=== PATIENT | female | born 1960 | race Caucasian/White ===

== ENCOUNTER 2019-11-27 10:40 | Outpatient (CLI) | payer BC, SELFPAY ==
--- NOTE | ~2019-11-27 | MM_ITS ---
EXAMINATION: MM screening rupert BI w leonila HISTORY: Screening mammogram TECHNIQUE: Craniocaudal and mediolateral oblique 3-D tomosynthesis images were obtained and synthetic 2-D images were generated. CAD analysis was submitted and interpreted. COMPARISON: No prior mammogram is available for comparison at this institution. BREAST PARENCHYMAL COMPOSITION: There are scattered areas of fibroglandular density. FINDINGS: There is no evidence of suspicious mass, calcification, or architectural distortion to sugg est malignancy in either breast. There has been no suspicious interval change. IMPRESSION: 1. No mammographic evidence of malignancy 2. Recommend routine screening mammography in one year BI-RADS Category 1: Negative Reviewed, dictated and finalized at location A.
== END 2019-11-27 10:41 | disposition home or self-care (01) ==
PROVIDERS: PCP Family Medicine; Visit Provider Family Medicine
DX: Z12.31 Encounter for screening mammogram for malignant neoplasm of breast (principal)
CPT/HCPCS: 77063; 77067

== ENCOUNTER 2020-06-20 09:00 | Outpatient (RCR) | payer BC, SELFPAY ==
--- NOTE | 2020-05-23 11:53 | PTOPEVAL ---
Thank you for referring Shahla Bacon to [facility] The patient is scheduled to be seen for therapy? 2 x/week for 5 weeks. Please review, sign, date and return this plan of care TOMMY. I agree with and certify that the following plan of care is medically necessary. Referring Physician Date Attending Provider: Isaak Spivey MD Referring Provider: Isaak Spivey MD *PT Outpatient Evaluation Start: 05/23/20 10:26 Freq: Status: Active Protocol: Document 05/23/20 10:28 OLAMIDE (Rec: 05/23/20 10:56 OLAMIDE [id number]) Therapy Assessment Status Assessment Status Assessment Status Evaluation Outpatient Past Medical History Past Medical History Source of Past Medical History Patient,Recalled from Previous Visit, Confirmed with Patient /Family Neurological History Hx Neurological Disorders No Significant History Cardiovascular History Hx Cardiac Disorders No Significant History Respiratory History Hx Respiratory Disorders No Significant History Gastrointestinal History Hx Gastrointestinal Disorders No Significant History Genitourinary History Hx Genitourinary Disorders No Significant History Musculoskeletal History Hx Musculoskeletal Disorders No Significant History Hematological History Hx Hematological Disorders No Significant History Endocrine History Hx Hypothyroidism Yes HEENT History Hx Other HEENT Disorders Yes: hearing loss Psychosocial History Hx Other Psychiatric Disorders Yes: panic attacks Evaluation Information Problem Diagnosis RTC tendonitis Onset 1 yr Subjective Information She was doing more use of Query Text:As Reported By Patient/ computer and use of mouse at Family work 1yrs ago with increased bicep pain. The symptoms improved with rest last year. But returned with normal work hours. She retired in November, but the symptoms did not improve. She is concerned something is wrong. She has increased pain with extreme shoulder IR with add motion. Sudden jerking of the arm is painful. Trouble and pain with brushing teeth and opening jars. Difficulty pulling the covers up when sleeping. At rest she normally has no pain. She is performing cardio of walkin
--- NOTE | 2020-06-20 11:15 | PTOPEVAL ---
Thank you for referring Shahla Bacon to [facility]. Pt has achieved maximal potential with skilled therapy services at this time. ?No additional skilled therapy services required at this time. Please review, sign, date and return this plan of care TOMMY. I agree with and certify that the following plan of care is medically necessary. Referring Physician Date Attending Provider: Isaak Spivey MD Referring Provider: Isaak Spivey MD *PT Outpatient Evaluation Start: 05/23/20 10:26 Freq: Status: Active Protocol: Document 06/20/20 09:05 OLAMIDE (Rec: 06/20/20 09:54 [facility] [id number]) Therapy Assessment Status Assessment Status Assessment Status Re-evaluation/Discharge Note Outpatient Past Medical History Past Medical History Source of Past Medical History Patient,Recalled from Previous Visit, Confirmed with Patient /Family Neurological History Hx Neurological Disorders No Significant History Cardiovascular History Hx Cardiac Disorders No Significant History Respiratory History Hx Respiratory Disorders No Significant History Gastrointestinal History Hx Gastrointestinal Disorders No Significant History Genitourinary History Hx Genitourinary Disorders No Significant History Musculoskeletal History Hx Musculoskeletal Disorders No Significant History Hematological History Hx Hematological Disorders No Significant History Endocrine History Hx Hypothyroidism Yes HEENT History Hx Other HEENT Disorders Yes: hearing loss Psychosocial History Hx Other Psychiatric Disorders Yes: panic attacks Evaluation Information Problem Diagnosis RTC tendonitis Onset 1 yr Subjective Information She feels more confident she Query Text:As Reported By Patient/ is better knowledged on proper Family movement of the UE and she is able to move without hurting herself. She is able to brush teeth and open jars with improved pain and movement. She cont to have UE stiffness at home, but less pain of the arm. The stiffness and soreness improves after she is up and moving in the moving. She denied pain with reaching behind her back for ADL's. 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 Pain Assessment Timing of Pain Assessment Timing of Pain Assessment Re-assessment Pain Scale Pain Scale Used Nu
== END 2020-06-21 08:58 | disposition home or self-care (01) ==
LOC: ANHPT 09:00
PROVIDERS: PCP Family Medicine; Referring Provider Orthopaedic Surgery; Visit Provider Orthopaedic Surgery
DX: M75.81 Other shoulder lesions, right shoulder (principal)
CPT/HCPCS: 97035; 97110; 97140; 97161

== ENCOUNTER 2021-01-07 17:40 | Outpatient (CLI) | payer OTHER, SELFPAY ==
--- NOTE | ~2021-01-07 | MM_ITS ---
EXAMINATION: MM screening rueprt BI w leonila HISTORY: Screening TECHNIQUE: Craniocaudal and mediolateral oblique 3-D tomosynthesis images were obtained and synthetic 2-D images were generated. CAD analysis was submitted and interpreted. COMPARISON: Comparison to multiple prior studies sequentially, with oldest reviewed study dated 07/2014. BREAST PARENCHYMAL COMPOSITION: There are scattered areas of fibroglandular density. FINDINGS: There is no evidence of suspicious mass, calcification, or architectural distortion to sugg est malignancy in either breast. There has been no suspicious interval change. IMPRESSION: 1. No mammographic evidence of malignancy. 2. Recommend routine screening mammography in one year. BI-RADS Category 1: Negative Reviewed, dictated and finalized at location A.
== END 2021-01-07 17:41 | disposition home or self-care (01) ==
LOC: ANHIMG 17:43
PROVIDERS: PCP Family Medicine; Visit Provider Family Medicine
DX: Z12.31 Encounter for screening mammogram for malignant neoplasm of breast (principal)
CPT/HCPCS: 77063; 77067

== ENCOUNTER 2022-02-24 16:49 | Outpatient (CLI) | payer OTHER, SELFPAY ==
--- NOTE | ~2022-02-24 | MM_ITS ---
EXAMINATION: MM screening rupert BI w leonila HISTORY: Screening mammogram, family history of breast cancer in her mother. TECHNIQUE: Craniocaudal and mediolateral oblique 3-D tomosynthesis images were obtained and synthetic 2-D images were generated. CAD analysis was submitted and interpreted. COMPARISON: 01/07/2021, 11/27/2019, 11/21/2018 BREAST PARENCHYMAL COMPOSITION: There are scattered areas of fibroglandular density. FINDINGS: There is no suspicious mass, calcification, or architectural distortion to suggest malignan cy in either breast. There has been no suspicious interval change. IMPRESSION: 1. No mammographic evidence of malignancy. 2. Recommend routine screening mammography in one year. BI-RADS Category 1: Negative Reviewed, dictated and finalized at location A.
== END 2022-02-24 16:50 | disposition home or self-care (01) ==
PROVIDERS: PCP Family Medicine; Visit Provider Family Medicine
DX: Z12.31 Encounter for screening mammogram for malignant neoplasm of breast (principal)
CPT/HCPCS: 77063; 77067

== ENCOUNTER 2022-03-17 11:32 | Outpatient (CLI) | payer OTHER, SELFPAY ==
--- NOTE | ~2022-03-17 | XR_ITS ---
EXAM: XR lumbar spine 2-3V DATE: 03/17/2022 11:54 HISTORY: M54.50 - Low back pain, unspecified NON TRAUMA RELATED . COMPARISON: None available. FINDINGS: 5 nonrib-bearing lumbar-type vertebral bodies. Pedicles intact. Normal vertebral body alig nment. Vertebral body heights preserved. Mild disc space narrowing at L4-5 and L5-S1. Multilevel mild facet sclerosis and hypertrophy. No fracture or dislocation. IMPRESSION: Mild lower lumbar degenerative disc disease and facet arthropathy. Reviewed, dictated and finalized at location K.
== END 2022-03-17 11:33 | disposition home or self-care (01) ==
LOC: ANHIMG 11:34
PROVIDERS: PCP Family Medicine; Visit Provider Nurse Practitioner Family
DX: M51.36 Other intervertebral disc degeneration, lumbar region (principal)
CPT/HCPCS: 72100

== ENCOUNTER 2022-05-26 14:00 | Outpatient (RCR) | payer OTHER, SELFPAY ==
--- NOTE | 2022-04-15 16:11 | PTOPEVAL1 ---
Assessment and note entered by Danni Buchanan, PT Evaluation Information Assessment Status Evaluation Diagnosis low back pain Onset January 2022 Subjective Information Shahla reports: in January, started doing more overhead lifts with weight for strengthening; can do all home activities but pain worse; for fitness -- used to take 3-4 mile walks, now can barely do 1 mile; standing about 5-10 minutes; have exercise bike at home- do ok with it; have been trying to work on her posture--knows it is bad; Reported Pain Level Pain Score Self Report Additional Pain Score Comments pain range of 0-8/10; sore over low back R >L; pain increased with awaken in AM, walking, increase activity level and standing;pain decreased with; sit, rest, bend forward to stretch back, heat pad, over the counter med PRN; is sleeping OK; generally sleep on side in flexed position- educated on use of pillow between knees and more extended trunk; Oswestry self assessment functional score of 46% limitation; Assessment PT Clinical Summary Shahla has the diagnosis of low back pain. She reports increase in pain without trauma or injury. She has decreased walking, standing and activity tolerance due to pain. With rest, her pain is 0/ 10. Self assessment Oswestry score is 46% limitation in activity. With the evaluation, she has poor standing posture of thoracic and lumbar spine, with scoliosis and rotation of her spine; weakness over trunk and scapular areas and tightness over R anterior hip/ quad. Standing trunk flexion decreases her pain. Skilled PT services are indicted for modalities to decrease pain, therapeutic exercises to stretch and strengthen thoracic-lumbar spine with education for posture and HEP. Plan of Care Interventions Electrical Stimulation,Hot Pack/Cold Pack,Manual Therapy,Neuro Re-education,Patient/Caregiver Education,Therapeutic Activities,Therapeutic Exercise PT Services Indicated Yes Treatment Frequency and 1x/wk for 5 weeks Duration These treatments will address the objective and functional deficits as defined above. The patient will be advanced safely and appropriately in order for the patient to progress towards his/her prior level of function. Additional exercises will be introduced and as well as a comprehensive home exercise program upon discha
--- NOTE | 2022-05-26 14:49 | PTOPDC ---
Assessment and note entered by Danni Buchanan, PT Evaluation Information Assessment Status Discharge Diagnosis low back pain Onset January 2022 Subjective Information Shahla reports: she is more aware of her back position and stretching her back; it is a little better; have been doing her exercises at home; walking time of about 1 mile, then have to sit down and take a break; pain range of 0-4/10, at mid sacrum; decrease with heat and sitting down to rest; increase pain with standing still on hard surface 10-15 min; Reported Pain Level Pain Score Self Report pain range 0-4/10 Additional Pain Score Comments discussed balance of activity/rest; pain management and awareness of activity level and when to stop activity and plan for activities; discussed home exercises, bicycle riding- stationary at home; walking distance of about 1 mile, then stop; not to over do it with activity; sitting without legs crossed or rounding her back; pt voiced understanding of managing her pain not a cure; Assessment PT Clinical Summary Shahla has received 5 PT sessions for low back pain. Compared to the initial evaluation: pain rating at the worst decreased from 8 to 4/10; reported walking tolerance is the same and standing tolerance increased by 5 minutes; increased flexibility of R anterior hip/quad muscles; Oswestry self assessment score improved from 46% to 36% limitation in activity level; increase trunk and hip strength; indep with HEP and increased awareness of posture and positioning of her trunk/spine. The goals were achieved. Discharge PT services. She is to continue with her home exericses and posture awareness. Plan of Care PT Services Indicated No
== END 2022-05-26 14:58 | disposition home or self-care (01) ==
LOC: ANHPT 14:00
PROVIDERS: PCP Family Medicine; Visit Provider Nurse Practitioner Family
DX: M54.50 Low back pain, unspecified (principal)
CPT/HCPCS: 97014; 97110; 97112; 97140; 97161; 97530; G0283

== ENCOUNTER 2022-06-26 10:01 | Emergency (ER) | payer OTHER, SELFPAY ==
[2022-06-26 10:14] VITALS: BP 138/83; PULSE 95; RESP 16; TEMP 37.3; O2SAT 100
[2022-06-26 10:15] VITALS: BP 138/83; PULSE 95; RESP 16; TEMP 37.3; O2SAT 100
--- NOTE | 2022-06-26 10:23 | ED.EAR ---
HPI - Ear Problem General Chief complaint: Ear Stated complaint: R EAR CLOGGED Time Seen by Provider: 06/26/22 10:17 Source: patient Mode of arrival: ambulatory Limitations: no limitations History of Present Illness HPI Narrative: Patient presents today complaining of 4 day history of clogging to the right ear with popping. Denies pain. She has been using Debrox drops without relief. Denies any additional symptoms. Related Data Allergies Allergy/AdvReac Type Severity Reaction Status Date / Time codeine AdvReac Unknown goofy Verified 03/17/22 10:57 Review of Systems Review of Systems: CONSTITUTIONAL: Denies body aches, fever, chills, or sweats. EYES: Denies visual changes, redness, or discharge. ENT: Denies rhinorrhea, congestion, sore throat, or otalgia.+ right ear clogging CARDIOVASCULAR: Denies chest pain, palpitations, or edema. RESPIRATORY: Denies cough or dyspnea. GASTROINTESTINAL: Denies abdominal pain, nausea, vomiting, or diarrhea. GENITOURINARY: Denies dysuria or hematuria. SKIN: Denies rash, itching, or wounds. MUSCULOSKELETAL: Denies back pain, joint pain, or myalgia. NEUROLOGIC: Denies headache, numbness, tingling, or weakness. PSYCH: Denies depression or anxiety. [facility] Past Medical History Medical History Acquired hypothyroidism VIKTORIA (generalized anxiety disorder) Hearing loss Nonintractable menstrual migraine Panic attacks Right shoulder pain Seasonal allergies Surgical History Surgical History History of appendectomy History of cholecystectomy Family History Family History Father Family history of malignant neoplasm Patient's father is Family history of malignant neoplasm of testis Mother Hypertension Other Arthritis Social History Social History Smoking status: Never smoker Second hand tobacco smoke exposure: No Alcohol intake: current Drinks per week: 1 Substance use: never Substance use type: does not use Living arrangements: with family Occupation/Education: occupation Gender identity (if verbalized by the patient): Female Comments At time of signature, I have reviewed and agree with nursing past medical, surgical, social and family history unless otherwise noted. Please see nursing chart for further information. There is no relevant family history pertinent to the presenting complaint Exam Narrative: GENERAL: Well-appearing, well-nourished, and in no acute distress. HEAD: Normocephalic, atraumatic. EYES: EOMI. No redness or drainage. Conjunctivae normal. ENT: Mucous membranes pink and moist. Nares clear. No rhinorrhea. Left TM normal. Right TM occluded with deep cerumen impaction. NECK: Normal AROM. CHEST: No respiratory distress. EXTREMITIES: Normal range of motion. No edema. SKIN: Warm, dry, no rash. Capillary refill normal. Normal skin turgor. NEURO: No focal deficits. Alert and oriented x3. Gait steady. PSYCH: Normal affect. No signs of depression or anxiety. Course Course Level of Care: Express Care Visit Vital Signs Vital signs: Vital Signs Temperature 99.2 F 06/26/22 10:14 Pulse Rate 95 06/26/22 10:14 Respiratory Rate 16 06/26/22 10:14 Blood Pressure 138/83 06/26/22 10:14 Pulse Oximetry 100 06/26/22 10:14 Temperature 99.2 F 06/26/22 10:15 Pulse Rate 95 06/26/22 10:15 Respiratory Rate 16 06/26/22 10:15 Blood Pressure 138/83 06/26/22 10:15 Pulse Oximetry 100 06/26/22 10:15 Reviewed. Pt has been instructed to follow up with her PCP regarding her elevated blood pressure today. Procedures Ear Wax Removal Right Ear: Ear Wax Removal Date: 06/26/22 Ear Wax Removal Time: 10:25 Cerumenolytic Used: other (none)
== END 2022-06-26 10:38 | disposition home or self-care (01) ==
PROVIDERS: Emergency Provider Nurse Practitioner; PCP Family Medicine
DX: H61.21 Impacted cerumen, right ear (principal); E03.9 Hypothyroidism, unspecified
CPT/HCPCS: 69209; 99212; G0463

== ENCOUNTER 2023-05-06 11:13 | Outpatient (CLI) | payer OTHER, SELFPAY ==
--- NOTE | ~2023-05-06 | US_ITS ---
US breast BI complete DATE: 05/06/2023 12:57 Please refer to 05/06/2023 combined bilateral diagnostic mammogram and bilateral complete breast ultr asound examination report. IMPRESSION: BI-RADS Category 2: Benign Recommendation: Routine annual mammographic screening Reviewed, dictated and finalized at Location A. Reviewed, dictated and finalized at location A. TIC CRESYLATE SHIFT SUPERINTENDENT
--- NOTE | ~2023-05-06 | MM_ITS ---
EXAMINATION: MM diagnostic rupert BI w leonila HISTORY: Left breast lump TECHNIQUE: ML, MLO and CC 3-D tomosynthesis images of both breasts were performed and synthetic 2-D i mages were generated. CAD analysis was submitted and interpreted. High resolution complete bilateral breast ultrasound examination could all 4 quadrants and subareolar areas was performed. COMPARISON: 02/24/2022, 01/07/2021, 11/27/2019 bilateral screening mammogram examinations BREAST PARENCHYMAL COMPOSITION: There are scattered areas of fibroglandular density. FINDINGS: MAMMOGRAPHIC FINDINGS: No suspicious mass or architectural distortion, malignant calcification, skin thickening or retractio n or significant new or developing density is detected. ULTRASOUND: Right breast: No suspicious mass or shadowing of the right breast. No other significant abnormality. Left breast: There are 2 circumscribed sonolucent lesions at 1:00 approximately 2 cm from the nipple, measuring 3 mm or less maximal dimension, consistent with simple cyst. No suspicious mass or shadowing or other significant abnormality of left breast is detected. IMPRESSION: 1. Benign findings 2. Routine annual mammographic screening is recommended BI-RADS Category 2: Benign finding(s). Reviewed, dictated and finalized at location A. CTION COORDINATION POWER ENGINEER
== END 2023-05-06 11:14 | disposition home or self-care (01) ==
PROVIDERS: PCP Family Medicine; Visit Provider Nurse Practitioner
DX: N63.20 Unspecified lump in the left breast, unspecified quadrant (principal)
CPT/HCPCS: 76641; 77062; 77066; G0279

== ENCOUNTER 2023-05-26 13:48 | Outpatient (CLI) | payer OTHER, SELFPAY ==
--- NOTE | ~2023-05-26 | DEXA_ITS ---
Bone Density Report Name: SONALI PAYAN Age: 62 Sex: Female Ethnicity: White Date of : 1960 Indication: postmenopausal; screening for osteoporosis; parental hip fracture; Referring Provider: MASTER PEREZ Study: Bone densitometry was performed. Exam Date: May 26, 2023 Accession number: [id number] Bone Density: Region BMD T-score Z-score Classification AP Spine(L1-L4) 0.691 -3.2 -1.8 Osteoporosis Femoral Neck (Left) 0.505 -3.1 -1.8 Osteoporosis Total Hip (Left) 0.629 -2.6 -1.6 Osteoporosis Femoral Neck (Right) 0.508 -3.1 -1.8 Osteoporosis Total Hip (Right) 0.596 -2.8 -1.9 Osteoporosis Total Hip Mean 0.613 -2.7 -1.8 Osteoporosis World Health Organization criteria for BMD impression classify patients as: Normal (T-score at or above -1.0), Osteopenia (T-score between -1.0 and -2.5), or Osteoporosis (T-score at or below -2.5). 10-year Fracture Risk: FRAX not reported because: Some T-score for Spine Total or Hip Total or Femoral Neck at or below -2.5 Clinical Information Provided by Patient: Parent has had a hip fracture Has used the following medications: Vitamin D, Calcium Patient maximum height was 68 Menopause Age: 60 Does not regularly consume dairy products Onset of menses at age 14 Number of children 1 Impression: The patient has osteoporosis, based on the Total Spine T-score. The patient has risk factors, including: parental hip fracture. Discussion: INCREASED RISK OF FRACTURE. BONE DENSITY IS UNDESIRABLY LOW AT ONE OR MORE SKELETAL SITES, CONSISTENT WITH POSTMENOPAUSAL OSTEOPOROSIS. This patient's lowest T-score meets the World Health Organization's (WHO) criteria for osteoporosis at one or more sites (T-score -2.5 or below). In untreated patients, the risk of osteoporotic fracture increases approximately two-fold for each 1.0 SD decrease in T-score. Low bone density is not the only risk factor for fracture; also consider factors such as patient's age, frailty or poor health, risk of falling, risk of injury, previous osteoporotic fracture, family history of osteoporosis, cigarette smoking, low body weight, etc. Not everyone with low bone mineral density has osteoporosis; osteomalacia and other metabolic bone disorders should also be considered. Patients who have osteoporosis should be evaluated for specific diseases and conditions (secondary causes) that may cause or contribute to bone loss. The [place] Association of Clinical Endocrinologists (AACE) and National Osteoporosis Foundation (NOF) recommend pharmacologic intervention for all postmenopausal women whose T-score is in this range. The patient should follow a healthful lifestyle (good nutrition with adequate calcium and vitamin D, and appropriate weight-bearing exercise). Follow-Up: Consider a repeat BMD and Vertebr
== END 2023-05-26 13:49 | disposition home or self-care (01) ==
LOC: ANHIMG 13:49
PROVIDERS: PCP Family Medicine; Visit Provider Obstetrics & Gynecology
DX: N95.1 Menopausal and female climacteric states (principal); M81.0 Age-related osteoporosis without current pathological fracture
CPT/HCPCS: 77080

== ENCOUNTER 2023-08-03 09:43 | Outpatient (CLI) | payer BC, SELFPAY ==
--- NOTE | ~2023-08-03 | XR_ITS ---
Right Hand Technique: PA, oblique, and lateral views were obtained. Clinical History: Thumb pain Findings: No acute fracture or dislocation is seen. Osseous alignment is anatomic. There is moderate degenerative change of the interphalangeal joint of the thumb. There is mild to moderate degenerative change of the second and fifth DIP joints. There is mild degenerative change of the third, fourth, a nd fifth PIP joints. Soft tissues are unremarkable. Impression: Degenerative changes, as above. Reviewed, dictated and finalized at location M. TRIMMER Impression: Degenerative changes, as above.
== END 2023-08-03 09:44 | disposition home or self-care (01) ==
PROVIDERS: PCP Family Medicine; Visit Provider Plastic Surgery
DX: M79.644 Pain in right finger(s) (principal)
CPT/HCPCS: 73130

== ENCOUNTER 2023-09-29 08:47 | Outpatient (CLI) | payer BC, SELFPAY ==
[2023-09-29 20:00] LABS: Appearance Urine Clear (Clear); Bacteria Urine None Seen /hpf; Bilirubin Urine Negative (Negative); Blood Urine Negative (Negative); Color Urine Dark Yellow (Yellow); Glucose Urine UA Negative (Negative); Ketones Urine Trace mg/dL (Negative); Leukocyte Esterase Ur Trace LEU/UL (Negative); Nitrate Urine Negative (Negative); Non Pathogenic Casts 0-2; Protein Urine Trace mg/dL (Negative); RBC Urine 0-2 /hpf (0-2); Specific Grav Ur 1.026 (1.001-1.035); Squamous Epithelial Cell Urine None Seen /hpf (Few); Urobilinogen Urine 0.2 mg/dL (<2.0); WBC Urine 0-5 /hpf (0-3)
[2023-09-29 20:14] LABS: Add Urine Microscopic? YES
[2023-09-29 20:15] LABS: Alanine Aminotransferase 24 U/L (6-35); Albumin Level 4.1 g/dL (3.5-5.1); Alkaline Phosphatase 68 U/L (38-126); Anion Gap 5 mmol/L (4-12); Aspartate Amino Transferase 34 U/L (14-36); Bilirubin,Total 1.1 mg/dL (0.2-1.3); Blood Urea Nitrogen 18 mg/dL (7-17); Calcium 8.7 mg/dL (8.4-10.2); Carbon Dioxide 30 mmol/L (22-30); Chloride 104 mmol/L (98-107); Cholesterol 185 mg/dL (0-200); Estimated Glomerular Filt Rate > 60; Glucose 87 mg/dL (65-110); HDL Direct 58 mg/dL; Potassium 3.9 mmol/L (3.4-5.0); Sodium 139 mmol/L (137-145); Triglycerides 128 mg/dL (<150)
[2023-09-29 20:26] LABS: LDL Cholesterol Direct 104 mg/dL
[2023-09-29 20:31] LABS: Hematocrit 43.9 % (37.0-47.0); Hemoglobin 13.8 g/dL (12.0-15.0); Mean Corpuscular HGB Conc 31.4 g/dl (32-36); Mean Corpuscular Hemoglobin 28.6 pg (26-34); Mean Corpuscular Volume 91.1 fl (80-100); Mean Platelet Volume 11.8 fl (7.4-10.4); Platelet Count Result 189 k/mm3 (150-375); Red Blood Count 4.82 M/mm3 (4.2-5.4); Red Cell Distribution Width 12.8 % (11.5-14.5)
== END 2023-09-29 08:48 | disposition home or self-care (01) ==
LOC: ANHGOSHLAB 08:49
PROVIDERS: PCP Family Medicine; Visit Provider Family Medicine
DX: E03.9 Hypothyroidism, unspecified (principal); Z00.00 Encounter for general adult medical examination without abnormal findings
CPT/HCPCS: 36415; 80053; 80061; 81001; 84443; 85027

== ENCOUNTER 2024-01-24 02:20 | Day surgery (SDC) | payer BC, SELFPAY ==
[2024-01-05 09:49] VITALS: BMI 19.5
[2024-01-24 12:45] VITALS: BMI 18.3
[2024-01-24 13:01] VITALS: BP 136/84; PULSE 106; RESP 16; TEMP 36.3; O2SAT 100
[2024-01-24] MEDS: LACTATED RINGERS 1,000 ML 150 ML IV CONT (13:11)
--- NOTE | 2024-01-24 13:51 | P.PNAN_ITS ---
Anes - Initial Pre Proc Eval Procedure: Operation Date: 01/24/24 14:00 Proposed Procedures p Colonoscopy - Kt Johnson MD Date/Time: 01/24/24 13:51 Surgeon: Kt Johnson MD Pre Op Diagnosis: Positive Cologuard Patient Data Age: 63 Gender: F Height: 1.7 m Weight: 53.2 kg Last Vital Signs Temp 97.3 F L 01/24/24 13:01 Pulse 106 H 01/24/24 13:01 Resp 16 01/24/24 13:01 BP 136/84 01/24/24 13:01 Pulse Ox 100 01/24/24 13:01 O2 Del Method Room Air 01/24/24 13:01 Allergies Allergy/AdvReac Type Severity Reaction Status Date / Time codeine AdvReac Unknown goofy Verified 01/24/24 12:54 Home Medications Medication Instructions Recorded Confirmed Type ipratropium bromide 42 mcg (0.06 2 spray intranasal TID PRN allergy 05/13/23 01/24/24 Rx %) nasal spray symptoms #15 mL levothyroxine 75 mcg tablet 75 mcg PO DAILY #90 tabs 08/27/23 01/24/24 Rx alprazolam 0.25 mg tablet (Xanax) 0.25 mg PO BID PRN anxiety #60 tabs 09/27/23 01/24/24 Rx tretinoin 0.025 % topical cream 1 applic topical QHS #45 grams 09/27/23 01/24/24 Rx multivitamin 1 tablet PO DAILY 12/23/23 01/24/24 History alendronate 70 mg tablet 70 mg PO WEEKLY #12 tabs 12/28/23 01/24/24 Rx cholecalciferol (vitamin D3) 62.5 5,000 unit PO DAILY #90 tabs 01/12/24 01/24/24 Rx mcg (2,500 unit) chewable tablet hydrochlorothiazide 12.5 mg tablet 12.5 mg PO QAM #90 tabs 01/12/24 01/24/24 Rx Patient hx anesthesia problems: none Family hx anesthesia problems: none Results Review: All pre-operative results and documents have been reviewed as part of the pre- operative evaluation. [facility] Past Medical History Medical History Acquired hypothyroidism VIKTORIA (generalized anxiety disorder) Hearing loss Nonintractable menstrual migraine Osteoporosis Panic attacks Right shoulder pain Seasonal allergies Surgical History Surgical History History of appendectomy History of cholecystectomy Family History Family History Father Family history of malignant neoplasm Patient's father is Family history of malignant neoplasm of testis Mother Hypertension Other Arthritis Social History Social History Smoking status: Never smoker Second hand tobacco smoke exposure: No Alcohol intake: current Drinks per week: 1 Substance use: never Substance use type: does not use Do You Feel Safe in your Home?: Yes Lack of Transportation: No Lack of Food: Never True Current Housing: I Have Housing Concerned About Future Housing: No Difficulty Paying Gas/Electric Bills: No Difficulty Paying for Meds: No Currently Unemployed: No Education: Master's Degree or Higher Difficulty w/ Childcare or Family Care: No Living arrangements: with family Occupation/Education: occupation Gender identity (if verbalized by the patient): Female Spiritual care concerns: No Anes - Eval Final PreProcedure Day of Procedure 01/24/24 13:51 Patient weight: normal Heart: regular rate and rhythm Lungs: clear to auscultation Airway: Mallampati scale class II Neurological: alert and oriented Last oral intake: >/= 8 hours ASA classification: II Emergent: no Anesthetic plan: proceed Anesthesia type and monitoring: general GIVS and standard monitoring Results Review: All pre-operative results and documents have been reviewed as part of the pre- operative evaluation. Informed Consent: The patient's anesthetic plan and its attendant risks and benefits were discussed with the patient/family/POA. Questions were solicited and answers provided to the satisfaction of the patient/family/POA.
--- NOTE | 2024-01-24 13:58 | PM.HPGS ---
History of Present Illness History of Present Illness Consent: Risks, benefits, and alternatives have been discussed and questions answered. Patient agrees to proceed with procedure. Chief complaint: Positive Cologuard Narrative: Shahla Bacon is a 63 year old female here for first colonoscopy, + cologuard Review of Systems Review of Systems: All systems reviewed & are unremarkable except as noted in HPI and below PMFSH Past Medical History Medical History (Updated 01/24/24 @ 13:58 by Kt Johnson MD) Acquired hypothyroidism VIKTORIA (generalized anxiety disorder) Hearing loss Nonintractable menstrual migraine Osteoporosis Panic attacks Positive colorectal cancer screening using Cologuard test Right shoulder pain Seasonal allergies Surgical History Surgical History History of appendectomy History of cholecystectomy Family History Family History Father Family history of malignant neoplasm Patient's father is Family history of malignant neoplasm of testis Mother Hypertension Other Arthritis Social History Social History Smoking status: Never smoker Second hand tobacco smoke exposure: No Alcohol intake: current Drinks per week: 1 Substance use: never Substance use type: does not use Do You Feel Safe in your Home?: Yes Lack of Transportation: No Lack of Food: Never True Current Housing: I Have Housing Concerned About Future Housing: No Difficulty Paying Gas/Electric Bills: No Difficulty Paying for Meds: No Currently Unemployed: No Education: Master's Degree or Higher Difficulty w/ Childcare or Family Care: No Living arrangements: with family Occupation/Education: occupation Gender identity (if verbalized by the patient): Female Spiritual care concerns: No Meds Home Medications and Allergies Home Medications Medication Instructions Recorded Confirmed Type ipratropium bromide 42 mcg (0.06 2 spray intranasal TID PRN allergy 05/13/23 01/24/24 Rx %) nasal spray symptoms #15 mL levothyroxine 75 mcg tablet 75 mcg PO DAILY #90 tabs 08/27/23 01/24/24 Rx alprazolam 0.25 mg tablet (Xanax) 0.25 mg PO BID PRN anxiety #60 tabs 09/27/23 01/24/24 Rx tretinoin 0.025 % topical cream 1 applic topical QHS #45 grams 09/27/23 01/24/24 Rx multivitamin 1 tablet PO DAILY 12/23/23 01/24/24 History alendronate 70 mg tablet 70 mg PO WEEKLY #12 tabs 12/28/23 01/24/24 Rx cholecalciferol (vitamin D3) 62.5 5,000 unit PO DAILY #90 tabs 01/12/24 01/24/24 Rx mcg (2,500 unit) chewable tablet hydrochlorothiazide 12.5 mg tablet 12.5 mg PO QAM #90 tabs 01/12/24 01/24/24 Rx Allergies Allergy/AdvReac Type Severity Reaction Status Date / Time codeine AdvReac Unknown goofy Verified 01/24/24 12:54 Vital Signs Vital Signs - 24 hr 01/24/24 13:01 Temperature 97.3 F L Pulse Rate 106 H Respiratory Rate 16 Blood Pressure 136/84 Pulse Oximetry 100 Oxygen Delivery Room Air Exam Const: General: comfortable and no acute distress HENMT: Face/Nose/Sinus: Normal nares present Eyes: General: appearance normal, both eyes and all related structures Neck: Neck: no JVD Resp: Auscultation: clear to auscultation bilaterally Cardio: Rate: regular rate Rhythm: regular rhythm GI: Inspection: non-distended GI Palp: Yes Soft to palpation Skin: General skin exam: normal color Neuro: General: gait normal Speech: normal speech Extrem: General: normal to inspection Psych: Mental Status: mental status grossly normal Assessment and Plan Assessment and plan (1) Positive colorectal cancer screening using Cologuard test: Code(s): R19.5 - Other fecal abnormalities Status: Acute Assessment and Plan: colonoscopy
[2024-01-24 14:24] VITALS: BP 117/58; PULSE 74; RESP 22; O2SAT 100
[2024-01-24 14:34] VITALS: BP 125/66; PULSE 69; RESP 18; O2SAT 100
[2024-01-24 14:43] VITALS: BP 121/66; PULSE 72; RESP 17; O2SAT 100
== END 2024-01-24 15:02 | disposition home or self-care (01) ==
PROVIDERS: PCP Family Medicine; Visit Provider Internal Medicine Gastroenterology
PROC: 0DJD8ZZ Inspection of Lower Intestinal Tract, Via Natural or Artificial Opening Endoscopic (ICD-10-PCS; CPT 45378; principal; 2024-01-24 14:00)
DX: D12.8 Benign neoplasm of rectum (principal); K64.8 Other hemorrhoids; E03.9 Hypothyroidism, unspecified; F41.9 Anxiety disorder, unspecified; M81.0 Age-related osteoporosis without current pathological fracture; F41.0 Panic disorder [episodic paroxysmal anxiety]; Z79.83 Long term (current) use of bisphosphonates; Z98.890 Other specified postprocedural states; Z90.49 Acquired absence of other specified parts of digestive tract; Z80.43 Family history of malignant neoplasm of testis
CPT/HCPCS: 45385; 88305; J2704; J7120

== ENCOUNTER 2024-05-15 09:17 | Outpatient (CLI) | payer BC, SELFPAY ==
--- NOTE | ~2024-05-15 | MM_ITS ---
EXAMINATION: MM screening [facility] BI w leonila HISTORY: Screening TECHNIQUE: Craniocaudal and mediolateral oblique 3-D tomosynthesis images were obtained and synthetic 2-D images were generated. CAD analysis was submitted and interpreted. COMPARISON: Comparison to multiple prior studies sequentially, with oldest reviewed study dated 11/19. BREAST PARENCHYMAL COMPOSITION: Dense: The breasts are heterogeneously dense, which may obscure small masses FINDINGS: The right breast is stable without evidence for malignancy. There are developing nodular as ymmetries of the left breast. IMPRESSION: 1. Developing nodular left breast asymmetries. 2. Additional mammographic views and possible breast ultrasound are recommended. BI-RADS Category 0: Incomplete: Needs additional imaging evaluation. Reviewed, dictated and finalized at location B. T DIGESTER OPERATOR IMPRESSION: 1. Developing nodular left breast asymmetries. 2. Additional mammographic views and possible breast ultrasound are recommended . BI-RADS Category 0: Incomplete: Needs additional imaging evaluation.
== END 2024-05-15 09:18 | disposition home or self-care (01) ==
LOC: ANHIMG 09:20
PROVIDERS: PCP Family Medicine; Visit Provider Family Medicine
DX: Z12.31 Encounter for screening mammogram for malignant neoplasm of breast (principal)
CPT/HCPCS: 77063; 77067

== ENCOUNTER 2024-06-06 10:46 | Outpatient (CLI) | payer BC, SELFPAY ==
--- NOTE | ~2024-06-06 | DEXA_ITS ---
Bone Density Report Name: SONALI PAYAN Age: 63 Sex: Female Ethnicity: White Date of : 1960 Indication: postmenopausal; screening for osteoporosis; Referring Provider: MELE SRINIVASAN Study: Bone densitometry was performed. Exam Date: June 06, 2024 Accession number: [id number] Bone Density: Region BMD T-score Z-score Classification AP Spine(L1-L4) 0.734 -2.8 -1.3 Osteoporosis Femoral Neck (Left) 0.549 -2.7 -1.4 Osteoporosis Total Hip (Left) 0.684 -2.1 -1.1 Osteopenia Femoral Neck (Right) 0.546 -2.7 -1.4 Osteoporosis Total Hip (Right) 0.633 -2.5 -1.5 Osteoporosis Total Hip Mean 0.659 -2.3 -1.3 Osteopenia World Health Organization criteria for BMD impression classify patients as: Normal (T-score at or above -1.0), Osteopenia (T-score between -1.0 and -2.5), or Osteoporosis (T-score at or below -2.5). 10-year Fracture Risk: FRAX not reported because: Some T-score for Spine Total or Hip Total or Femoral Neck at or below -2.5 Treated for osteoporosis Clinical Information Provided by Patient: Is being treated for osteoporosis Has used the following medications: Fosamax (i.e. alendronate), Vitamin D Patient maximum height was 68 Menopause Age: 60 Does not regularly consume dairy products Drinks caffeinated beverages Onset of menses at age 14 Number of children 1 Impression: The patient has osteoporosis, based on the Total Spine T-score. Discussion: It is important to ask patients whether they are taking their medications and to encourage continued and appropriate compliance with their osteoporosis therapies to reduce fracture risk. It is also important to review their risk factors and encourage appropriate calcium and vitamin D intakes, exercise, fall prevention and other lifestyle measures. Follow-Up: Consider a repeat BMD and Vertebral Fracture Assessment (VFA) exam in 2 years or sooner if medically necessary, to reassess this patient's status. Reported by: LOS on 06/06/2024 11:19:00 AM. Reviewed, dictated and finalized at location ALawanda DIAMOND
== END 2024-06-06 10:47 | disposition home or self-care (01) ==
LOC: ANHIMG 10:48
PROVIDERS: PCP Family Medicine; Visit Provider Internal Medicine Endocrinology, Diabetes & Metabolism
DX: M81.0 Age-related osteoporosis without current pathological fracture (principal); Z13.820 Encounter for screening for osteoporosis
CPT/HCPCS: 77080

== ENCOUNTER 2024-06-09 10:44 | Outpatient (CLI) | payer BC, SELFPAY ==
--- NOTE | ~2024-06-09 | MM_ITS ---
EXAMINATION: MM diagnostic [facility] LT w leonila HISTORY: Left breast asymmetry TECHNIQUE: Additional 3-D tomosynthesis images of the left breast were performed and synthetic 2-D im ages were generated. CAD analysis was submitted and interpreted. COMPARISON: 05/15/2024 BREAST PARENCHYMAL COMPOSITION:Dense: The breasts are heterogeneously dense, which may obscure small masses. FINDINGS: Left breast asymmetry effaces with spot compression. No persistent mass lesion or distortio n. No suspicious microcalcification. IMPRESSION: No mammographic evidence for malignancy. BI-RADS Category 1: Negative Reviewed, dictated and finalized at location . ANALYST
== END 2024-06-09 10:45 | disposition home or self-care (01) ==
LOC: ANHIMG 10:48
PROVIDERS: PCP Family Medicine; Visit Provider Physician Assistant
DX: R92.8 Other abnormal and inconclusive findings on diagnostic imaging of breast (principal)
CPT/HCPCS: 77061; 77065; G0279

== ENCOUNTER 2025-05-21 10:15 | Outpatient (CLI) | payer BC, SELFPAY ==
--- NOTE | ~2025-05-21 | MM_ITS ---
EXAMINATION: screening [facility] BI w leonila INDICATION: Asymptomatic, referred for screening mammogram COMPARISON: 05/15/2024 through 11/27/2019 TECHNIQUE: Digital Breast Tomosynthesis CC, MLO views of Both breasts were obtained with computer-aided detection to assist in interpretation of the study. FINDINGS: The breasts are heterogeneously dense, which may obscure small masses. There is an asymmetry seen on the MLO view in the Inferior right breast at posterior third. There is an asymmetry seen on the MLO view in the Inferior left breast at posterior third. Elsewhere, there are no mammographic features of malignancy. IMPRESSION: 1. Bilateral breast asymmetries. RECOMMENDATION: Bilateral breast Diagnostic mammogram with true lateral, appropriate spot compression views and an ultrasound if needed. BI-RADS Category 0: Incomplete: Needs additional imaging evaluation. Reviewed, dictated and finalized at location A. ANT SETTER IMPRESSION: 1. Bilateral breast asymmetries. RECOMMENDATION: Bilateral breast Diagnostic mammogram with true lateral, appropriate spot compr ession views and an ultrasound if needed. BI-RADS Category 0: Incomplete: Needs additional imaging evaluation.
== END 2025-05-21 10:16 | disposition home or self-care (01) ==
PROVIDERS: PCP Family Medicine; Visit Provider Family Medicine
DX: Z12.31 Encounter for screening mammogram for malignant neoplasm of breast (principal); R92.8 Other abnormal and inconclusive findings on diagnostic imaging of breast
CPT/HCPCS: 77063; 77067